=== PATIENT | male | born 1960 | race American Indian/Alaskan Native ===

== ENCOUNTER 2017-05-06 21:26 | Emergency (ER) | payer MEDICARE, MEDICAID ==
[2017-05-06 22:36] VITALS: BMI 43.8
[2017-05-06 22:46] VITALS: RESP 18; TEMP 97.8
--- NOTE | 2017-05-06 23:56 | ED PDOC ---
Arrival/HPI <Chang Hwang - Last Filed: 05/07/17 00:57> - General Historian: Patient - History of Present Illness Time/Duration: < month (2-3 weeks) Symptom Onset: Gradual Symptom Course: Unchanged Activities at Onset: Light Context: Home <Vita Gomez - Last Filed: 05/07/17 02:34> - General Chief Complaint: Abnormal Skin Integrity Time Seen by Provider: 05/06/17 23:01 - History of Present Illness Narrative History of Present Illness (Text): 05/06/17 23:56 56 year old male, whose past medical history includes lympedema and Gout, who presents to the Emergency department complaining of a diffuse rash for the past 2-3 weeks. Patient states 2-3 weeks prior he developed a pruritic, dry rash to his left arm which subsequently spread diffusely over his chest, backs, arms, and legs. Patient states he has not taken any medication at home for symptoms, but became concerned and presented to the ER today for further evaluation. Patient denies any fever, sore throat, facial/tongue swelling, nausea, vomiting , back pain, or any other complaints. (Vita Gomez) Past Medical History - Provider Review Nursing Documentation Reviewed: Yes - Infectious Disease Hx of Infectious Diseases: None - Cardiac Hx Cardiac Disorders: Yes Hx Hypertension: Yes - Pulmonary Hx Respiratory Disorders: No - Neurological Hx Neurological Disorder: No - HEENT Hx HEENT Disorder: Yes (Wears Glasses to Drive) - Renal Hx Renal Disorder: No - Endocrine/Metabolic Hx Endocrine Disorders: No - Hematological/Oncological Hx Blood Disorders: No - Integumentary Hx Dermatological Disorder: No - Musculoskeletal/Rheumatological Hx Musculoskeletal Disorders: Yes Hx Rheumatoid Arthritis: Yes - Gastrointestinal Hx Gastrointestinal Disorders: No - Genitourinary/Gynecological Hx Genitourinary Disorders: No - Psychiatric Hx Psychophysiologic Disorder: No Hx Substance Use: No - Surgical History Hx Gastric Bypass Surgery: Yes (December 16, 2014) Other/Comment: Right Chest Port used for labs, last accessed two years ago. - Anesthesia Hx Anesthesia: No <Vita Gomez - Last Filed: 05/07/17 02:34> Family/Social History - Physician Review Nursing Documentation Reviewed: Yes Family/Social History: Unknown Family HX Smoking Status: Never Smoked Hx Alcohol Use: No Hx Substance Use: No <Vita Gomez - Last Filed: 05/07/17 02:34> Allergies/Home Meds <Chang Hwang - Last Filed: 05/07/17 00:57> <Vita Gomez - Last Filed: 05/07/17 02:34> Allergies/Adverse Reactions: Allergies shrimp Allergy (Verified 05/07/17 00:20) ANAPHYLAXIS seafood Allergy (Uncoded 05/07/17 00:20) ANAPHYLAXIS Review of Systems - Physician Review All systems were reviewed & negative as marked: Yes - Review of Systems Constitutional: Normal. absent: Fevers Eyes: Normal ENT: Normal Respiratory: Normal. absent: SOB, Cough Cardiovascular: Normal. absent: Chest Pain Gastrointestinal: Normal. absent: Abdominal Pain, Diarrhea, Nausea, Vomiting Genitourinary Male: Normal. absent: Dysuria, Frequency, Hematuria, Urinary Output Changes Musculoskeletal: Normal. absent: Back Pain, Neck Pain Skin: Rash, Pruritis Neurological: Normal. absent: Headache, Dizziness Endocrine: Normal Hemo/Lymphatic: Normal Psychiatric: Normal <Vita Gomez - Last Filed: 05/07/17 02:34> Physical Exam Vital Signs Reviewed: Yes Temperature: Afebrile Blood Pressure: Normal Pulse: Regular Respiratory Rate: Normal Appearance: Positive for: Well-Appearing, Non-Toxic, Comfortable Pain Distress: None Mental Status: Positive for: Alert and Oriented X 3 - Systems Exam Head: Present: Atraumatic, Normocephalic Pupils: Present: PERRL Extroacular Muscles: Present: EOMI Conjunctiva: Present: Normal Mouth: Present: Moist Mucous Membranes Neck: Present: Normal Range of Motion Respiratory/Chest: Present: Clear to Auscultation, Good Air Exchange. No: Respiratory Distress, Accessory Muscle Use Cardiovascular: Present: Regular Rate and Rhythm, Normal S1, S2. No: Murmurs Back: Present: Normal Inspection Upper Extremity: Present: Normal Inspection. No: Cyanosis, Edema Lower Extremity: Present: Normal Inspection. No: Edema Neurological: Present: GCS=15, CN II-XII Intact, Speech Normal Skin: Present: Warm, Dry, Rashes (Dry, raised plaques with scaling and excoriations diffusely to chest, back, arms, and legs sparing palms and soles), Normal Color Psychiatric: Present: Alert, Oriented x 3, Normal Insight, Normal Concentration <Vita Gomez - Last Filed: 05/07/17 02:34> Vital Signs Temp Pulse Resp BP Pulse Ox 05/06/17 22:44 97.8 F 71 18 137/83 100 Medical Decision Making <Chang Hwang - Last Filed: 05/07/17 00:57> <Vita Gomez - Last Filed: 05/07/17 02:34> ED Course and Treatment: 05/06/17 23:56 Impression: 56 year old male complaining of diffuse pruritic rash to chest, back, arms, and legs for 2-3 weeks. Plan: -- Pepcid -- Prednisone -- Benadryl -- Reassess and disposition Progress Notes: Patient is nontoxic well-appearing in no distress with stable vital signs no angioedema. Lungs are clear to auscultation bilaterally there is no wheezing noted. The airway is patent I advised taking Benadryl every 6 hours as needed for itch as well as prednisone daily x4 days. Advised patient to follow up with primary care physician within the next 2 days and return if symptoms worsen persist or if new symptoms develop. Patient verbalizes understanding of discharge instructions and need for immediate followup. all aspects of this case were discussed the attending of record. Impression : rash Benadryl every 6 hours as needed for itch Prednisone once daily x4 days Pepcid one tablet daily Follow up with the primary care physician tomorrow Follow up with the material mixer within the next 2 days. Return if symptoms worsen persist or if new symptoms develop: Shortness of breath, feeling of throat closing, difficulty speaking or any other concerning symptoms develop (Vita Gomez) - Medication Orders Current Medication Orders: Discontinued Medications Diphenhydramine HCl (Benadryl) 50 mg PO ONCE ONE Stop: 05/07/17 00:22 Last Admin: 05/07/17 00:41 Dose: 50 mg Famotidine (Pepcid) 20 mg PO STAT STA Stop: 05/07/17 00:22 Last Admin: 05/07/17 00:41 Dose: 20 mg Prednisone (Prednisone Tab) 60 mg PO STAT ONE Stop: 05/07/17 00:22 Last Admin: 05/07/17 00:41 Dose: 60 mg - PA / UPPER LINING CEMENTER / Resident Statement DEYVI has reviewed & agrees with the documentation as recorded. MD/DO has examined the patient and agrees with the treatment plan. <EriChang - Last Filed: 05/07/17 00:57> - Scribe Statement The provider has reviewed the documentation as recorded by the Scribe <Vita Gomez - Last Filed: 05/07/17 02:34> - Scribe Statement Krista Herman Provider Scribe Attestation: All medical record entries made by the Scribe were at my direction and personally dictated by me. I have reviewed the chart and agree that the record accurately reflects my personal performance of the history, physical exam, medical decision making, and the department course for this patient. I have also personally directed, reviewed, and agree with the discharge instructions and disposition. (Vita Gomez) Disposition/Present on Arrival <Chang Hwang - Last Filed: 05/07/17 00:57> - Present on Arrival Any Indicators Present on Arrival: No History of DVT/PE: No History of Uncontrolled Diabetes: No Urinary Catheter: No History of Decub. Ulcer: No History Surgical Site Infection Following: None - Disposition Have Diagnosis and Disposition been Completed?: Yes Disposition Time: 01:01 Patient Plan: Discharge <VernonlizyVita - Last Filed: 05/07/17 02:34> - Disposition Diagnosis: Rash Disposition: HOME/ ROUTINE Patient Problems: Current Active Problems Problem Status Onset Rash Acute Condition: GOOD Discharge Instructions (ExitCare): Acute Rash (ED) Additional Instructions: Benadryl every 6 hours as needed for itch Prednisone once daily x4 days Pepcid one tablet daily Follow up with the primary care physician tomorrow Follow up with the material mixer within the next 2 days. Return if symptoms worsen persist or if new symptoms develop: Shortness of breath, feeling of throat closing, difficulty speaking or any other concerning symptoms develop Prescriptions: DiphenhydrAMINE [Benadryl] 25 mg PO Q6H #20 cap Famotidine [Pepcid] 20 mg PO DAILY #30 tab predniSONE [predniSONE Tab] 3 tab PO DAILY #12 tab Referrals: Mino Arboleda MD [Staff Provider] - Follow up with primary Kasey Harrell MD [Staff Provider] - Follow up with primary Briseida Bruno MD [Staff Provider] - Follow up with primary Forms: [facility] ([place])
[2017-05-07 02:51] VITALS: BP 132/81; PULSE 80; O2SAT 98
== END 2017-05-07 00:59 | disposition home or self-care (01) ==
LOC: MERGE 21:26 → ED 21:26
DX: R21 Rash and other nonspecific skin eruption (principal)